=== PATIENT | female | born 1970 | race Caucasian/White ===

== ENCOUNTER 2016-10-06 07:07 | Emergency (ER) | payer OTHER ==
[~2016-10-06] VITALS: Ht 162.6 cm; Wt 101.6 kg
[2016-10-06 08:11] LABS: BASOPHIL % 0.3 % (0-2); PLATELET COUNT 260 x10^3mcL (130-400); RED CELL DISTRIBUTION WIDTH 13.6 % (11.5-14.5)
[2016-10-06 08:25] LABS: ALBUMIN 3.6 g/dL (3.4-5.0); ALKALINE PHOSPHATASE 99 U/L (46-116); ALT/SGPT 19 U/L (14-59); AST/SGOT 10 U/L (15-37); BILIRUBIN TOTAL 0.4 mg/dL (0.20-1.00); CARBON DIOXIDE 26.1 mmol/L (21-32); CHLORIDE SERUM 104 mmol/L (98-107); GFR1 > 60 mL/min; GLUCOSE SERUM 103 mg/dL (74-106); LIPASE 148 IU/L (73-393); POTASSIUM SERUM 3.4 mmol/L (3.5-5.1); SODIUM SERUM 139 mmol/L (136-145); TOTAL PROTEIN, SERUM 7.3 g/dL (6.4-8.2)
[2016-10-06 11:20] VITALS: BP 103/70
== END 2016-10-06 11:20 | disposition home or self-care (01) ==
LOC: ED 07:07
PROVIDERS: Emergency Medicine
DX: R10.30 Lower abdominal pain, unspecified (principal); R11.0 Nausea; I10 Essential (primary) hypertension; E28.2 Polycystic ovarian syndrome; Z88.0 Allergy status to penicillin; Z88.5 Allergy status to narcotic agent
CPT/HCPCS: J1885; J2405; J3010; J7030

== ENCOUNTER 2016-11-11 19:07 | Inpatient (IN) | payer OTHER ==
[~2016-11-11] VITALS: Ht 152.4 cm; Wt 100.7 kg
[2016-11-11 23:44] LABS: BASOPHIL % 1.2 % (0-2); PLATELET COUNT 261 x10^3mcL (130-400); RED CELL DISTRIBUTION WIDTH 13.7 % (11.5-14.5)
[2016-11-11 23:56] LABS: CALCIUM 8.3 mg/dL (8.5-10.1); CARBON DIOXIDE 27.4 mmol/L (21-32); CHLORIDE SERUM 104 mmol/L (98-107); CREATININE SERUM 0.8 mg/dL (0.6-1.0); GFR1 > 60 mL/min; GLUCOSE SERUM 95 mg/dL (74-106); POTASSIUM SERUM 3.5 mmol/L (3.5-5.1); SODIUM SERUM 139 mmol/L (136-145)
[2016-11-12] VITALS (7 sets, daily range): BP systolic 106–133; BP diastolic 51–82
[2016-11-12 00:05] LABS: ALKALINE PHOSPHATASE 97 U/L (46-116); ALT/SGPT 18 U/L (14-59); AST/SGOT 13 U/L (15-37); BILIRUBIN TOTAL 0.24 mg/dL (0.20-1.00); TOTAL PROTEIN, SERUM 6.7 g/dL (6.4-8.2)
[2016-11-12 00:09] LABS: ALBUMIN 3.2 g/dL (3.4-5.0)
[2016-11-12] MEDS ORDERED: LEVOTHYROXIN0.025 M2 PO (01:05)
[2016-11-12] MEDS ORDERED: MAGNESIUM OXID400 MG PO (01:06)
[2016-11-12] MEDS ORDERED: VITAMIN D34000 UNIT PO (01:07)
[2016-11-12 03:05] LABS: T3 TOTAL 0.88 ng/mL
[2016-11-12 03:17] LABS: FREE T4 1.06 ng/dL (0.76-1.46); FREE THYROXINE INDEX 2.5 ug/dL (1.4-4.5); T4(THYROXINE) 7.7 ug/dL (4.7-13.3)
[2016-11-12 03:22] LABS: CHOLESTEROL/HDL RATIO 5.2; MAGNESIUM 1.9 mg/dL (1.8-2.4); PHOSPHOROUS 3.7 mg/dL (2.5-4.9)
[2016-11-12] MEDS ORDERED: SYNTHROID0.112 MG PO (11:54)
[2016-11-12] MEDS ORDERED: LIOTHYRONINE SO5 MCG PO (11:55)
[2016-11-12 13:34] LABS: UA SPECIFIC GRAVITY <=1.005 (1.005-1.035); microscopic required? YES; urine erythrocyte NEGATIVE (NEGATIVE)
[2016-11-12 14:24] LABS: AMPHETAMINE QUAL UR NONE DETECTED (NEG <=1000)
[2016-11-13 05:36] VITALS: BP 127/71
[2016-11-13 06:16] LABS: BASOPHIL % 0.6 % (0-2); PLATELET COUNT 230 x10^3mcL (130-400)
[2016-11-13 06:40] LABS: CALCIUM 8.1 mg/dL (8.5-10.1); CARBON DIOXIDE 27.1 mmol/L (21-32); CHLORIDE SERUM 109 mmol/L (98-107); CREATININE SERUM 0.9 mg/dL (0.6-1.0); GFR1 > 60 mL/min; GLUCOSE SERUM 86 mg/dL (74-106); MAGNESIUM 1.9 mg/dL (1.8-2.4); PHOSPHOROUS 3.2 mg/dL (2.5-4.9); POTASSIUM SERUM 3.9 mmol/L (3.5-5.1); SODIUM SERUM 143 mmol/L (136-145)
[2016-11-13 09:33] VITALS: BP 131/84
[2016-11-13 14:01] VITALS: BP 134/83
[2016-11-13 16:59] VITALS: BP 112/72
[2016-11-13 21:03] VITALS: BP 107/56
[2016-11-14 06:05] VITALS: BP 123/63
[2016-11-14 07:19] LABS: BASOPHIL % 0.3 % (0-2); PLATELET COUNT 250 x10^3mcL (130-400); RED CELL DISTRIBUTION WIDTH 14.1 % (11.5-14.5)
[2016-11-14 07:22] LABS: CALCIUM 8.8 mg/dL (8.5-10.1); CHLORIDE SERUM 104 mmol/L (98-107); CREATININE SERUM 0.9 mg/dL (0.6-1.0); GFR1 > 60 mL/min; GLUCOSE SERUM 83 mg/dL (74-106); MAGNESIUM 1.9 mg/dL (1.8-2.4); PHOSPHOROUS 3.6 mg/dL (2.5-4.9); POTASSIUM SERUM 3.9 mmol/L (3.5-5.1); SODIUM SERUM 140 mmol/L (136-145)
[2016-11-14 07:55] VITALS: BP 121/78
[2016-11-14] MEDS ORDERED: GOOD SENSE OMEP20 MG PO (08:25)
[2016-11-14 09:35] VITALS: BP 121/78
[2016-11-14 10:40] VITALS: BP 121/78
[2016-11-14] MEDS ORDERED: LEVAQUIN750 MG PO (11:20)
== END 2016-11-14 11:37 | disposition home or self-care (01) | DRG 241 ==
LOC: ED 19:07 → DU 11-12 00:28
PROVIDERS: Emergency Medicine; Internal Medicine; ADMIT Family Medicine
PROC: 0DB48ZX Excision of Esophagogastric Junction, Via Natural or Artificial Opening Endoscopic, Diagnostic (ICD-10-PCS; 2016-11-13)
PROC: 0D738ZZ Dilation of Lower Esophagus, Via Natural or Artificial Opening Endoscopic (ICD-10-PCS; 2016-11-13)
PROC: 0DB78ZX Excision of Stomach, Pylorus, Via Natural or Artificial Opening Endoscopic, Diagnostic (ICD-10-PCS; principal; 2016-11-13 07:30)
PROC: 0DB68ZX Excision of Stomach, Via Natural or Artificial Opening Endoscopic, Diagnostic (ICD-10-PCS; 2016-11-13 07:30)
DX: K29.70 Gastritis, unspecified, without bleeding (principal); Q39.4 Esophageal web; E44.0 Moderate protein-calorie malnutrition; E83.51 Hypocalcemia; Z68.41 Body mass index [BMI] 40.0-44.9, adult; E66.01 Morbid (severe) obesity due to excess calories; E78.5 Hyperlipidemia, unspecified; O92.6 Galactorrhea; N83.201 Unspecified ovarian cyst, right side; E03.9 Hypothyroidism, unspecified; N83.202 Unspecified ovarian cyst, left side; K21.0 Gastro-esophageal reflux disease with esophagitis; Z88.0 Allergy status to penicillin; Z88.5 Allergy status to narcotic agent; Z84.89 Family history of other specified conditions
CPT/HCPCS: 43220; 43235; 83880; 84439; 92610; C1769; J0696; J1200; J1610; J1885; J2250; J2310; J3010; J3490; J7030; Q0092; Q9967

== ENCOUNTER 2016-11-17 02:36 | Observation (INO) | payer OTHER ==
[~2016-11-17] VITALS: Ht 162.6 cm; Wt 100.7 kg
[~2016-11-17 02:36] MED LIST: GOOD SENSE OMEP20 MG PO; LEVAQUIN750 MG PO; LEVOTHYROXIN0.025 M2 PO; LIOTHYRONINE SO5 MCG PO; MAGNESIUM OXID400 MG PO; SYNTHROID0.112 MG PO; VITAMIN D34000 UNIT PO
[2016-11-17 03:33] LABS: PLATELET COUNT 278 x10^3mcL (130-400)
[2016-11-17 03:42] LABS: CALCIUM 9.5 mg/dL (8.5-10.1); CARBON DIOXIDE 24.5 mmol/L (21-32); CREATININE SERUM 1.1 mg/dL (0.6-1.0); POTASSIUM SERUM 3.2 mmol/L (3.5-5.1)
[2016-11-17 03:46] LABS: ALBUMIN 3.6 g/dL (3.4-5.0); BILIRUBIN TOTAL 0.32 mg/dL (0.20-1.00); TOTAL PROTEIN, SERUM 7.5 g/dL (6.4-8.2)
[2016-11-17 04:35] LABS: BAND NEUTROPHIL 3 % (0-10); METAMYELOCTE 1 % (0-2); MONOCYTE 3 % (0-7); SEGMENTED NEUTROPHILS 84 % (37-75)
[2016-11-17 04:37] LABS: PLATELET MORPHOLOGY LARGE PLATELET SEEN; rbc morphology (normal/abnorm) NORMAL (NORMAL)
[2016-11-17 04:42] LABS: UA SPECIFIC GRAVITY >=1.030 (1.005-1.035); microscopic required? YES; urine erythrocyte 2+ (NEGATIVE)
[2016-11-17 05:42] LABS: MAGNESIUM 1.7 mg/dL (1.8-2.4); PHOSPHOROUS 3.8 mg/dL (2.5-4.9)
[2016-11-17 05:52] LABS: T3 TOTAL 0.91 ng/mL
[2016-11-17 05:53] LABS: FREE T4 0.89 ng/dL (0.76-1.46); FREE THYROXINE INDEX 2.9 ug/dL (1.4-4.5); T4(THYROXINE) 8.5 ug/dL (4.7-13.3)
[2016-11-17 06:05] LABS: AMPHETAMINE QUAL UR NONE DETECTED (NEG <=1000)
[2016-11-17 10:03] LABS: CHOLESTEROL/HDL RATIO 4.9
[2016-11-17 11:35] VITALS: BP 126/79
[2016-11-17 13:42] VITALS: BP 117/68
[2016-11-17 18:03] VITALS: BP 103/55
[2016-11-17 20:52] VITALS: BP 169/47
[2016-11-18 05:43] VITALS: BP 110/70
[2016-11-18 07:38] LABS: CALCIUM 8.2 mg/dL (8.5-10.1); CARBON DIOXIDE 24.1 mmol/L (21-32); CHLORIDE SERUM 107 mmol/L (98-107); CREATININE SERUM 0.8 mg/dL (0.6-1.0); GFR1 > 60 mL/min; GLUCOSE SERUM 84 mg/dL (74-106); MAGNESIUM 1.8 mg/dL (1.8-2.4); PHOSPHOROUS 2.8 mg/dL (2.5-4.9); POTASSIUM SERUM 3.5 mmol/L (3.5-5.1); SODIUM SERUM 140 mmol/L (136-145)
[2016-11-18 07:41] LABS: BASOPHIL % 0.5 % (0-2); PLATELET COUNT 220 x10^3mcL (130-400); RED CELL DISTRIBUTION WIDTH 13.8 % (11.5-14.5)
[2016-11-18] MEDS ORDERED: ROB750 PO (13:27)
[2016-11-18 13:58] VITALS: BP 121/73
[2016-11-18] MEDS ORDERED: CIPRO500 MG PO (17:21)
[2016-11-18 17:48] VITALS: BP 121/73
== END 2016-11-18 18:46 | disposition home or self-care (01) | DRG 463 ==
LOC: ED 02:36 → DU 08:28
PROVIDERS: Emergency Medicine; ADMIT Family Medicine
DX: N39.0 Urinary tract infection, site not specified (principal); G93.41 Metabolic encephalopathy; Q39.4 Esophageal web; E44.0 Moderate protein-calorie malnutrition; E86.0 Dehydration; R31.9 Hematuria, unspecified; K52.9 Noninfective gastroenteritis and colitis, unspecified; K29.70 Gastritis, unspecified, without bleeding; K20.9 Esophagitis, unspecified; O92.6 Galactorrhea; N83.202 Unspecified ovarian cyst, left side; N83.201 Unspecified ovarian cyst, right side; E03.9 Hypothyroidism, unspecified; E78.5 Hyperlipidemia, unspecified; E66.01 Morbid (severe) obesity due to excess calories; Z68.41 Body mass index [BMI] 40.0-44.9, adult
CPT/HCPCS: 83880; 84439; 87046; 87046-59; G0378; J0696; J2405; J3010; J3490; J7030; Q0092

== ENCOUNTER 2016-12-18 22:59 | Emergency (ER) | payer OTHER ==
[~2016-12-18 22:59] MED LIST changes: +CIPRO500 MG PO; +ROB750 PO
[2016-12-19 01:00] VITALS: BP 142/55
== END 2016-12-19 02:16 | disposition home or self-care (01) ==
LOC: ED 22:59
DX: J04.0 Acute laryngitis (principal); E03.9 Hypothyroidism, unspecified; Z88.0 Allergy status to penicillin; Z88.5 Allergy status to narcotic agent

== ENCOUNTER 2017-03-07 14:28 | Inpatient (IN) | payer OTHER ==
[~2017-03-07] VITALS: Ht 162.6 cm; Wt 95.7 kg
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
--- NOTE | 2017-03-07 15:16 | NUR ---
DR. HOGUE AT BEDSIDE FOR MSE
--- NOTE | 2017-03-07 15:47 | NUR ---
DR CARBAJAL AT BEDSIDE SPOKE TO PT, DISCUSSED PT'S CONDITION AND PLAN OF CARE.
[2017-03-07 16:15] LABS: BASOPHIL % 0.4 % (0-2); PLATELET COUNT 295 x10^3mcL (130-400); RED CELL DISTRIBUTION WIDTH 13.2 % (11.5-14.5)
[2017-03-07 16:22] LABS: CARBON DIOXIDE 30.1 mmol/L (21-32); CHLORIDE SERUM 102 mmol/L (98-107); GFR1 > 60 mL/min; GLUCOSE SERUM 101 mg/dL (74-106); POTASSIUM SERUM 3.8 mmol/L (3.5-5.1); SODIUM SERUM 138 mmol/L (136-145)
--- NOTE | 2017-03-07 16:24 | NUR ---
PT MEDICATED PER MD ORDER, PLEASE SEE EMAR, PT TOLERATED WELL, ICE PACKS PROVIDED FOR COMFORT WITH PILLOW WELL, PT RESTING IN BED IN A POSITION OF COMFORT, RESP EVEN AND UNLABORED, IN NO ACUTE DISTRESS, CALL LIGHT WITHIN REACH, WILL CONTINUE TO MONITOR, IV ESTABLISHED TO RIGHT AC FOR CT WITH CONTRAST
[2017-03-07 16:26] LABS: ALBUMIN 3.4 g/dL (3.4-5.0); ALKALINE PHOSPHATASE 92 U/L (46-116); ALT/SGPT 16 U/L (14-59); AST/SGOT 14 U/L (15-37); BILIRUBIN TOTAL 0.44 mg/dL (0.20-1.00); TOTAL PROTEIN, SERUM 7.6 g/dL (6.4-8.2)
--- NOTE | 2017-03-07 16:58 | NUR ---
PT TO CT VIA GURNEY AND BACK TO TREATMENT AREA WITH NO INCIDENCE
--- NOTE | 2017-03-07 17:02 | NUR ---
LAB AT BEDSIDE FOR BLOOD CULTURES AT THIS TIME
--- NOTE | 2017-03-07 17:30 | NUR ---
PT ASSISTED WITH BEDSIDE COMMODE AND BACK TO BED WITH NO INCIDENCE, REPORTS PAIN IS 4/10 AT THIS TIME, ANOTHER ICE PACK PROVIDED, SPOUSE AT BEDSIDE, CALL LIGHT WITHIN REACH
[2017-03-07] MEDS ORDERED: SYNTHROID0.125 MG PO (18:44)
[2017-03-07] MEDS ORDERED: BENADRYL ALLERG25 M1 PO (18:44)
[2017-03-07] MEDS ORDERED: APAP/HYDROCODON1 T11 PO (18:45)
[2017-03-07] MEDS ORDERED: RANITIDINE HYD150 M2 PO (18:45)
[2017-03-07] MEDS ORDERED: ALL DAY ALLERGY10 M2 PO (18:46)
[2017-03-07] MEDS ORDERED: LEVAQUIN750 MG PO (18:46)
[2017-03-07] MEDS ORDERED: OMEPRAZOLE40 M1 PO (18:47)
[2017-03-07] MEDS ORDERED: IBUPROFEN800 MG PO (18:47)
[2017-03-07] MEDS ORDERED: CYT5 PO (18:48)
[2017-03-07] MEDS ORDERED: MAGNESIUM OXID400 MG PO (18:48)
[2017-03-07] MEDS ORDERED: D3-50001 TAB PO (18:48)
[2017-03-07] MEDS ORDERED: TIZANIDINE HCL4 MG PO (18:48)
[2017-03-07] MEDS ORDERED: VITAMIN D400 UNIT PO (18:49)
--- NOTE | 2017-03-07 18:50 | NUR ---
MED REC COMPLETED, IV ABX INFUSING AT THIS TIME PER MD ORDER, PLEASE SEE EMAR, IV DISCONNECTED TO RIGHT AC WITH ANGIOCATH INTACT DUE TO PTS STATING IT HAYNES, NO REDNESS/INFLAMMATION NOTED, IV ABX INFUSING TO RIGHT WRIST
--- NOTE | 2017-03-07 19:10 | NUR ---
RECEIVED REPORT FROM OFE SINHA.
--- NOTE | 2017-03-07 19:27 | NUR ---
REPORT GIVEN TO ELLIOT SINHA.
[2017-03-07 19:36] LABS: microscopic required? NO
[2017-03-07 19:51] LABS: FREE T4 1.33 ng/dL (0.76-1.46); T4(THYROXINE) 11.9 ug/dL (4.7-13.3)
[2017-03-07 19:54] LABS: urine erythrocyte NEGATIVE (NEGATIVE)
[2017-03-07 20:04] VITALS: BP 141/79
[2017-03-07 20:05] LABS: AMPHETAMINE QUAL UR NONE DETECTED (NEG <=1000)
--- NOTE | 2017-03-07 20:17 | NUR ---
REACIEVED PATIENT FROM ED VIA JENNYFER, PATIENT ALERT AND ORIENTED, TELE # 23 SR, IV ACCESS TO RIGHT HAND, C/O PAIN TO NECK AREA WILL MEDICATE ORDERED, ORIENTED PATIENT TO ROOM AND SURROUNDINGS, BED IN LOW POSITION, BED RAILS UP X 2 CALL LIGHT WITHIN REACH, WILL ENDORSE CARE TO PRIMARY NURSE ELLIOT SINHA
[2017-03-07 20:18] LABS: MAGNESIUM 2.3 mg/dL (1.8-2.4); PHOSPHOROUS 2.1 mg/dL (2.5-4.9)
[2017-03-07 20:19] LABS: CHOLESTEROL/HDL RATIO 6.4
[2017-03-07 20:25] LABS: T3 TOTAL 1.45 ng/mL
[2017-03-07 20:26] VITALS: BP 141/79
--- NOTE | 2017-03-07 21:20 | NUR ---
PT C/O PAIN. WAS GOING TO GIVE NORCO BUT PATIENT REFUSE. PT STATED SHE IS JUST GOING TO WAIT FOR THE MUSCLE RELAXANT THE DR. IS GOING TO ORDER. IV ON THE RIGHT HAND INFUSING WITH NS AT 100 ML/HR. MADE PT COMFORTABLE. PLACED CALL LIGHT WITH IN REACH. WILL CONTINUE TO MONITOR.
[2017-03-07 22:30] VITALS: BP 141/79
--- NOTE | 2017-03-07 22:48 | NUR ---
PT C/O PAIN. GAVE PT TORADOL IVP. PT TOLERATED IT WELL. WILL CONTINUE TO MONITOR.
--- NOTE | 2017-03-08 01:14 | NUR ---
PT RESTING WITH EYES CLOSED. NO DISTRESS AND DISCOMFORT NOTED. WILL CONTINUE TO MONITOR.
[2017-03-08 05:15] VITALS: BP 91/54
--- NOTE | 2017-03-08 05:16 | NUR ---
PT C/O PAIN. GAVE PT TORADOL IVP. PT TOLERATED IT WELL. IV INTACT AND INFUSING ORDERED. MADE PT COMFORTABLE. WILL ENDORSE TO THE AM NURSE ACCORDINGLY.
[2017-03-08 06:42] LABS: CALCIUM 8.2 mg/dL (8.5-10.1); CHLORIDE SERUM 105 mmol/L (98-107); GFR1 > 60 mL/min; GLUCOSE SERUM 81 mg/dL (74-106); MAGNESIUM 2.2 mg/dL (1.8-2.4); POTASSIUM SERUM 3.7 mmol/L (3.5-5.1); SODIUM SERUM 140 mmol/L (136-145)
[2017-03-08 07:42] LABS: BASOPHIL % 0.3 % (0-2); PLATELET COUNT 249 x10^3mcL (130-400)
--- NOTE | 2017-03-08 07:50 | NUR ---
PT RECEIVED AAOX4, CONVERSING WELL IN FULL SENTENCES. NO NEURO DEFICITS NOTED. RESP EVEN AND UNLABORED ON RA. DENIES ANY SOB OR COUGH. DIM BILATERAL BASES NOTED. I.S. AT BEDSIDE, ENCOURAGED TO USE REGULARLY. TELE #23, NSR, HR 67. DENIES ANY CP OR PRESSURE. IV ON R WRIST INTACT, INFUSING NS AT 100ML/HR. ABD ROUND/SOFT WITH HYPOACTIVE BS IN ALL QUADS. LAST BM 03/01/[address] GIL, WILL FOLLOW UP. DENIES ANY ABD PAIN OR PRESSURE. VOIDING WELL WITH BRP. AMBULATORY. INCISION TO RIGHT ANTERIOR NECK WITH DERMABOND AMBER, S/P CERVICAL SPINE FUSION LAST WEEK. C/O SHOULDER/NECK PAIN, MEDICATED FOR PAIN. WILL CONTINUE TO MONITOR. CALL LIGHT WITHIN REACH.
[2017-03-08 07:58] LABS: RED CELL DISTRIBUTION WIDTH 13.4 % (11.5-14.5)
[2017-03-08 09:04] VITALS: BP 139/73
--- NOTE | 2017-03-08 09:30 | NUR ---
PT GIVEN ATIVAN PO FOR C/O ANXIETY. VISITOR AT BEDSIDE. DENIES ANY OTHER NEEDS AT THIS TIME.
[2017-03-08 10:32] VITALS: Ht 162.6 cm; Wt 95.7 kg
--- NOTE | 2017-03-08 12:00 | NUR ---
PT GIVEN ULTRAM PO ORDERED PRN. DR ANGELA AT BEDSIDE TO DISCUSS PLAN OF CARE WITH PATIENT. NEW ICE PACKS PROVIDED FOR SHOULDER/NECK AREA. DENIES ANY OTHER NEEDS AT THIS TIME.
[2017-03-08 13:05] VITALS: BP 118/69
--- NOTE | 2017-03-08 15:00 | NUR ---
PT MEDICATED WITH ATIVAN FOR C/O ANXIETY. REPORTS FEELING LIKE "JUMPING OUT OF MY SKIN." GIVEN ORDERED, SEE EMAR.
[2017-03-08 17:05] VITALS: BP 110/60
--- NOTE | 2017-03-08 19:01 | NUR ---
PT AMBULATED TO BATHROOM, HAD LARGE BM X1. PT SETTLED BACK INTO BED, C/O MILD NAUSEA AFTER BM. MEDICATED FOR PAIN ORDERED PRN, SEE EMAR. WILL ENDORSE TO INCOMING NURSE.
--- NOTE | 2017-03-08 19:50 | NUR ---
RECEIVED PT FROM PREVIOUS SHIFT. AAOX4. TELE #23. DENIES CP/PRESSURE AT THIS TIME. PULSES PALPABLE BILAT. MILD EDEMA PRESENT TO NECK. LUNG SOUNDS DIMINISHED TO BASES. DENIES SOB ON RA. BOWEL SOUNDS ACTIVE. DECREASED NAUSEA AT THIS TIME. GENERALIZED WEAKNESS. PT AMBULATORY. INCISION PRESENT TO RIGHT ANTERIOR NECK. DERMABOND IN PLACE AND AMBER. IV TO RIGHT WRIST PATENT AND INTACT. INFUSING WELL. BED IN LOWEST POSITION. FAMILY MEMBERS AT BEDSIDE. WILL CONTINUE TO MONITOR
--- NOTE | 2017-03-08 20:15 | NUR ---
PT REPORTS NAUSEA/VOMITING. COMPLAINS OF HER HEAD THROBBING. TOO SOON TO ADMINISTER ANOTHER DOSE OF ZOFRAN. MD NOTIFIED. REGLAN ORDERED AND ADMINISTERED. WILL CONTINUE TO MONITOR
[2017-03-08 21:26] VITALS: BP 125/78
--- NOTE | 2017-03-08 23:13 | NUR ---
PT RESTING IN BED. NO COMPLAINTS OF NAUSEA/VOMITING AT THIS TIME. PAIN IS TOLERABLE. RESPIRATIONS EVEN AND UNLABORED. IV TO RIGHT WRIST PATENT AND INTACT. INFUSING WELL. BED IN LOWEST POSITION. CALL LIGHT WITHIN REACH. WILL CONTINUE TO MONITOR
[2017-03-09 04:52] VITALS: BP 113/65
--- NOTE | 2017-03-09 05:01 | NUR ---
PT RECEIVED FROM ED VIA STACI ACCOMPANIED BY RN. PT ISABELL4. TELE #10. HR 70 NSR. NO CP/PRESSURE AT THIS TIME. PULSES STRONG BILAT. NO EDEMA NOTED. LUNG SOUNDS CTA BILAT. DENIES SOB ON RA. BOWEL SOUNDS ACTIVE X4. AMBULATORY. REDNESS/SWELLING TO RIGHT BREAST. AMBER. IV TO RAC. PATENT AND INTACT. INFUSING WELL. BED IN LOWEST POSITION. CALL LIGHT WITHIN REACH. WILL CONTINUE TO MONITOR
[2017-03-09 06:06] LABS: PLATELET COUNT 294 x10^3mcL (130-400); RED CELL DISTRIBUTION WIDTH 13.5 % (11.5-14.5)
[2017-03-09 06:12] LABS: CARBON DIOXIDE 26.2 mmol/L (21-32); CHLORIDE SERUM 104 mmol/L (98-107); GFR1 > 60 mL/min; GLUCOSE SERUM 122 mg/dL (74-106); POTASSIUM SERUM 3.4 mmol/L (3.5-5.1); SODIUM SERUM 138 mmol/L (136-145)
[2017-03-09 06:53] LABS: BASOPHIL % 0 % (0-2)
--- NOTE | 2017-03-09 06:56 | NUR ---
PT RESTING IN BED. COMPLAINED OF PAIN AROUND 0515 12/03. MEDICATED WITH PRN DILAUDID. NO NAUSEA AT THIS TIME. RESPIRATIONS EVEN AND UNLABORED. DENIES SOB ON RA. IV TO RIGHT WRIST. PATENT AND INTACT. INFUSING WELL. PT REQUESTS ICE PACKS REMAIN ON NECK AND HEAD IT KEEPS SWELLING AND PAIN DOWN. WILL TRY K-PAD LATER ON TODAY. BED IN LOWEST POSITION. CALL LIGHT WITHIN REACH. WILL ENDORSE CARE TO ONCOMING SHIFT NURSE
--- NOTE | 2017-03-09 07:40 | NUR ---
PT RECEIVED AAOX4, CONVERSING WELL IN FULL SENTENCES. C/O MILD THROBBING HEADACHE, MEDICATED BY PREVIOUS NURSE. RESP EVEN AND UNLABORED ON RA. DENIES ANY SOB OR COUGH AT THIS TIME. NOTED WITH DIM BILATERAL BASES. TELE #23, SR. DENIES ANY CP OR PRESSURE. IV ON RIGHT WRIST, 20G, INFUSING NS AT 100ML/HR. ABD ROUND/SOFT WITH ACTIVE BS IN ALL QUADS. LAST BM YESTERDAY PER PATIENT. VOIDING WELL WITH BRP. C/O MILD NAUSEA. MEDS OFFERED BUT REFUSED AT THIS TIME. ICE PACKS TO BILATERAL SHOULDERS AND NECK REQUESTED BY PATIENT PER HER SURGEON. DENIES ANY OTHER NEEDS AT THIS TIME. CALL LIGHT WITHIN REACH. WILL CONTINUE TO MONITOR.
[2017-03-09 09:12] VITALS: BP 115/60
--- NOTE | 2017-03-09 11:31 | NUR ---
PT AMBULATED TO BATHROOM AND VOMITTED X1. SMALL AMT (ABOUT 100ML) RAZO COLORED EMESIS NOTED. NAUSEA MEDS OFFERED, BUT PT REFUSED AT THIS. STATES SHE FEELS BETTER AFTER THROWING UP. SETTLED BACK INTO BED WITH CALL LIGHT WITHIN REACH. WILL CONTINUE TO MONITOR.
[2017-03-09 13:09] VITALS: BP 115/55
--- NOTE | 2017-03-09 13:30 | NUR ---
IV ON R WRIST LEAKING. DC'D WITH ANGIOCATH INTACT. PT TOLERATED WELL. NEW IV STARTED ON LFA, 22G. ATTEMPTED X1, TOLERATED WELL. RECONNECTED TO IVF ORDERED. DR YOUNGBLOOD AT BEDSIDE TO EVALUATE PATIENT.
[2017-03-09] MEDS ORDERED: LEVAQUIN750 MG PO (16:52)
[2017-03-09] MEDS ORDERED: CLEOCIN HCL300 MG PO (16:54)
[2017-03-09] MEDS ORDERED: LAC PO (16:57)
[2017-03-09] MEDS ORDERED: ZOFRAN8 MG PO (16:58)
[2017-03-09] MEDS ORDERED: MOM PO (17:00)
[2017-03-09 17:15] VITALS: BP 118/64
[2017-03-09] MEDS ORDERED: DIL2 PO (17:24)
--- NOTE | 2017-03-09 17:41 | NUR ---
DR RAMIREZ AT BEDSIDE TO SPEAK WITH PATIENT.
--- NOTE | 2017-03-09 18:19 | NUR ---
PT AWARE OF PENDING DISCHARGE. LEVAQUIN IV INFUSING, WILL DC AFTER FINISHED. PT AGREEABLE. DENIES ANY NEEDS AT THIS TIME.
--- NOTE | 2017-03-09 19:30 | NUR ---
PER JANN RN DAY SHIFT, PT WILL BE DISCHARGED HOME. SHE GAVE FAMILY DISCHARGE INSTRUCTION NOTED AND REMOVED TELE. PT WAS ALSO GIVEN ULTRAM PO FOR NECK ANS SHOULDER PAIN. IV WAS AND SITE WAS DISCONTINUED. WENT TO PHARMACY TO GET THE PRESCRIPTION FOR DILAUDID. VITAL SIGNS DOCUMENTED AND BELONGING LIST WAS DONE. MADE COMFORTABLE IN BED. WITH COLD COMPRESS WAS PLACED BOTH LEFT AND RIGHT SHOULDER. WILL CONTINUE TO MONITOR UNTIL WILL COME BACK FROM THE PHARMACY.
[2017-03-09 19:37] VITALS: BP 129/67
--- NOTE | 2017-03-09 20:11 | NUR ---
VALENTINO CAME BACK AND NOTIFIED DR. BAKER THAT DILAUDID PO PRESCRIPTION [facility] NEED [facility] WAITING FOR PRESCRIPTION AND PT STILL HERE.
--- NOTE | 2017-03-09 21:10 | NUR ---
PT'S RIDE CAME AND PT WAS DISCHARGED TO HOME VIA WHEELCHAIR ACCOMPANIED BY KIRK URBAN IN STABLE CONDITION.
== END 2017-03-09 21:02 | disposition home or self-care (01) | DRG 137 ==
LOC: ED 14:28 → DU 19:08
PROVIDERS: Emergency Medicine; Family Medicine; ADMIT Student in an Organized Health Care Education/Training Program
DX: J69.0 Pneumonitis due to inhalation of food and vomit (principal); G92 Toxic encephalopathy; Z68.42 Body mass index [BMI] 45.0-49.9, adult; E44.1 Mild protein-calorie malnutrition; E83.39 Other disorders of phosphorus metabolism; R11.2 Nausea with vomiting, unspecified; E78.2 Mixed hyperlipidemia; K21.9 Gastro-esophageal reflux disease without esophagitis; L29.8 Other pruritus; Z98.1 Arthrodesis status; T40.2X5A Adverse effect of other opioids, initial encounter; Y92.018 Other place in single-family (private) house as the place of occurrence of the external cause; Z88.6 Allergy status to analgesic agent; Z88.0 Allergy status to penicillin; E05.90 Thyrotoxicosis, unspecified without thyrotoxic crisis or storm; G62.9 Polyneuropathy, unspecified; E66.01 Morbid (severe) obesity due to excess calories; L29.9 Pruritus, unspecified; F43.23 Adjustment disorder with mixed anxiety and depressed mood
CPT/HCPCS: 83880; 84439; 94150; J0696; J1100; J1170; J1885; J1956; J2405; J2550; J2765; J3490; J7030; J7620; Q0092; Q0163; Q9967

== ENCOUNTER 2018-12-08 09:12 | Emergency (ER) | payer OTHER ==
[~2018-12-08] VITALS: Ht 165.1 cm; Wt 98.4 kg
[~2018-12-08 09:12] MED LIST changes: +ALL DAY ALLERGY10 M2 PO; +APAP/HYDROCODON1 T11 PO; +BENADRYL ALLERG25 M1 PO; +CLEOCIN HCL300 MG PO; +CYT5 PO; +D3-50001 TAB PO; +DIL2 PO; +IBUPROFEN800 MG PO; +LAC PO; +MOM PO; +OMEPRAZOLE40 M1 PO; +RANITIDINE HYD150 M2 PO; +SYNTHROID0.125 MG PO; +TIZANIDINE HCL4 MG PO; +VITAMIN D400 UNIT PO; +ZOFRAN8 MG PO
[2018-12-08 09:21] VITALS: Ht 165.1 cm; Wt 98.4 kg
[2018-12-08 12:22] VITALS: BP 128/92
== END 2018-12-08 12:22 | disposition home or self-care (01) ==
LOC: ED 09:12
DX: M54.5 Low back pain (principal); J02.8 Acute pharyngitis due to other specified organisms; E05.90 Thyrotoxicosis, unspecified without thyrotoxic crisis or storm; Z98.890 Other specified postprocedural states; Z88.0 Allergy status to penicillin; Z88.5 Allergy status to narcotic agent
CPT/HCPCS: J1885

== ENCOUNTER 2018-12-20 09:00 | Emergency (ER) | payer OTHER ==
[~2018-12-20] VITALS: Ht 165.1 cm; Wt 97.1 kg
[2018-12-20 09:07] VITALS: Ht 165.1 cm; Wt 97.1 kg
[2018-12-20 10:47] LABS: CALCIUM 8.2 mg/dL (8.5-10.1); CARBON DIOXIDE 27.4 mmol/L (21-32); CHLORIDE SERUM 104 mmol/L (98-107); CREATININE SERUM 0.9 mg/dL (0.6-1.0); GFR1 > 60 mL/min; GLUCOSE SERUM 98 mg/dL (74-106); POTASSIUM SERUM 3.6 mmol/L (3.5-5.1); SODIUM SERUM 141 mmol/L (136-145)
[2018-12-20 10:52] LABS: ALBUMIN 3.6 g/dL (3.4-5.0); ALKALINE PHOSPHATASE 100 U/L (46-116); ALT/SGPT 21 U/L (14-59); AST/SGOT 10 U/L (15-37); BILIRUBIN TOTAL 0.52 mg/dL (0.20-1.00); TOTAL PROTEIN, SERUM 7.8 g/dL (6.4-8.2)
[2018-12-20 10:53] LABS: BASOPHIL % 0.3 % (0-2); PLATELET COUNT 262 x10^3mcL (130-400); RED CELL DISTRIBUTION WIDTH 13.8 % (11.5-14.5)
[2018-12-20 12:32] VITALS: BP 144/87
== END 2018-12-20 12:35 | disposition home or self-care (01) ==
LOC: ED 09:00
PROVIDERS: Emergency Medicine
DX: N20.0 Calculus of kidney (principal); J20.9 Acute bronchitis, unspecified; E05.90 Thyrotoxicosis, unspecified without thyrotoxic crisis or storm; Z88.0 Allergy status to penicillin; Z88.1 Allergy status to other antibiotic agents; Z88.5 Allergy status to narcotic agent
CPT/HCPCS: 36415; J1885; J7512

== ENCOUNTER 2019-02-13 07:03 | Emergency (ER) | payer OTHER ==
[~2019-02-13] VITALS: Ht 165.1 cm; Wt 98.4 kg
[2019-02-13 07:13] VITALS: Ht 165.1 cm; Wt 98.4 kg
[2019-02-13 08:39] VITALS: BP 123/79
== END 2019-02-13 08:39 | disposition home or self-care (01) ==
LOC: ED 07:03
DX: M72.2 Plantar fascial fibromatosis (principal); E05.90 Thyrotoxicosis, unspecified without thyrotoxic crisis or storm; Z98.890 Other specified postprocedural states; Z88.0 Allergy status to penicillin; Z88.5 Allergy status to narcotic agent